=== PATIENT | female | born 1975 | race Caucasian/White ===

== ENCOUNTER 2018-09-08 20:23 | Observation (INO) ==
--- NOTE | 2018-09-08 20:53 | Emergency Department Note ---
Disposition Clinical Impression: Perirectal abscess Disposition: Admitted As Inpatient Condition: Fair Referrals: Yoly Reynoso CNP [Primary Care Provider] - Forms: ED Satisfaction Letter Time of Disposition: 21:01 Skin/Abscess/FB HPI Chief complaint: ED Skin/Abscess/Foreign Body Stated complaint: abcess on bottom/ to be admitted Time Seen by Provider: 09/08/18 20:35 Nursing Notes Reviewed: Yes Vital Signs Reviewed: Yes HPI Narrative: 43-year-old female presents from home for continued evaluation of an abscess on her left buttock. First noticed this morning has been exquisitely painful. She had no pain yesterday. She did self-express material from the area which she describes as, "pus, blood, and what looked like poop." This was operated on 10 years ago and, "cleaned out." Her surgeon at that time advised her that she needed to have a second surgery to repair the area. She never followed up. Patient was seen and evaluated this evening at [facility]. She was being prepared for transfer to this facility, admission to hospitalist with consultation to general surgery. She left that facility AGAINST MEDICAL ADVICE because her father is on hospice and she needed to ready him, his medications, and obtain a caregiver for the next several days. Once this was done, she presented to the emergency department at this facility. PMH: Seizure history ROS: Positive: As above Negative: Fever, chills, nausea, vomiting, abdominal pain, unusual back pain, change in urinary habits, vaginal discharge, pelvic pain, diarrhea, constipation Home Medications Medication Instructions Recorded Confirmed Furosemide [Lasix] 20 mg PO BID 09/08/18 09/08/18 LevETIRAcetam [Keppra] 500 mg PO TID 09/08/18 09/08/18 Previous Rx's Medication Instructions Recorded Ciprofloxacin HCl [Cipro] 500 mg PO BID #20 tablet 09/08/18 Promethazine [Phenergan] 25 mg PO Q6HR PRN #16 tablet 09/08/18 metroNIDAZOLE [Metronidazole] 500 mg PO TID #30 tablet 09/08/18 Allergies Allergy/AdvReac Type Severity Reaction Status Date / Time Penicillins Allergy Rash Verified 02/27/17 17:52 propoxyphene Allergy Rash Verified 02/27/17 17:52 [From Darvocet-N] Sulfa (Sulfonamide Allergy Swelling Verified 02/27/17 17:52 Antibiotics) of Lip/Tongue/Throat All systems ED: reviewed and negative except as stated. 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 Head: atraumatic, normocephalic Eye: normal appearance, no scleral icterus, no conjunctival injection ENT: mucous membranes moist, normal external ear exam Neck: normal inspection, trachea midline, full ROM Chest: normal inspection, symmetric chest rise Respiratory: Good respiratory effort. Bilateral breath sounds are clear without wheezing, crackles, or rhonchi. Cardiovascular: Regular rate and rhythm. No clicks, rubs, gallops, or murmors. Normal heart sounds. Abdomen: Bowel sounds present normoactive. Abdomen is soft, nondistended, and nontender. No guarding or rebound. Rectal exam: Electronic Installer present. External rectal exam showed swollen fluctuant erythematous oval measuring 10 similar by 5 cm tangent and directly lateral to the rectum on the patient's left gluteal cleft. This was exquisitely painful to light touch. There is a central umbilication currently not draining. It was not probed and internal rectal exam was not performed. No tenderness or visible lesion overlying the sacrum or coccyx. Musculoskeletal: Spontaneously moving all extremities. Skin: warm, dry, intact. Neuro: GCS 15. No focal neurologic deficits observed. Psych: Patient's affect is appropriate for situation. Course Course Narrative: At [facility]: 1g meropenem at appx 5pm 2L IVF CT abdomen and pelvis with IV contrast performed at [facility] radiology impression: CT/CT pelvis w iv no oral IMPRESSION: Perirectal medial gluteal mass 4.2 x 1.7 cm is noted with central calcification. This may represent complicated pilonidal cyst or chronic inflammatory process with calcification. No air bubbles are noted within the lesion. D/ / 09/08/2018 16:43:25 Ara Lombardo MD / kannan Interpreting Provider: Ara Lombardo MD CT head and pelvis read by radiology as possible pilonidal cyst. Clinically, this does not correlate. Strongly suspect perirectal abscess which may be chronic in nature given patient's history of previous operation 10 years ago for the same thing. 20:50 I discussed the patient with Dr. Siddiqi, on-call general surgeon. She is already familiar with the patient given the several discussion she had with Jes Choi earlier today. I discussed with her my physical exam findings and suspicion for perirectal abscess as well as low suspicion for pilonidal cyst. She is in agreement to see the patient as consult given the patient's, get a medical history with seizures. She requests patient be nothing by mouth after midnight's that she may see her first thing tomorrow morning. I discussed the patient with the admitting hospitalist, Dr. Lockwood, who agrees to accept the patient with general surgery following. Vital Signs Temperature 98.0 F 09/08/18 20:29 Pulse Rate 109 09/08/18 20:29 Respiratory Rate 18 09/08/18 20:29 Blood Pressure 144/87 09/08/18 20:29 O2 Sat by Pulse Oximetry 97 09/08/18 20:29 Temperature 98.0 F 09/08/18 21:00 Pulse Rate 95 09/08/18 21:00 Respiratory Rate 18 09/08/18 21:00 Blood Pressure 136/83 09/08/18 21:00 O2 Sat by Pulse Oximetry 97 09/08/18 21:00 Oxygen Delivery Oxygen Delivery Room Air
--- NOTE | 2018-09-08 21:07 | Emergency Department Note ---
Disposition Clinical Impression: Perirectal abscess Disposition: Admitted As Inpatient Condition: Fair General Adult HPI - General Chief complaint: ED Skin/Abscess/Foreign Body Stated complaint: abcess on bottom/ to be admitted Time Seen by Provider: 09/08/18 20:35 Nursing Notes Reviewed: Yes Vital Signs Reviewed: Yes - History of Present Illness Pain Scale: 9 - Related Data Home Medications Medication Instructions Recorded Confirmed Furosemide [Lasix] 20 mg PO BID 09/08/18 09/08/18 LevETIRAcetam [Keppra] 500 mg PO TID 09/08/18 09/08/18 Previous Rx's Medication Instructions Recorded Ciprofloxacin HCl [Cipro] 500 mg PO BID #20 tablet 09/08/18 Promethazine [Phenergan] 25 mg PO Q6HR PRN #16 tablet 09/08/18 metroNIDAZOLE [Metronidazole] 500 mg PO TID #30 tablet 09/08/18 Allergies Allergy/AdvReac Type Severity Reaction Status Date / Time Penicillins Allergy Rash Verified 02/27/17 17:52 propoxyphene Allergy Rash Verified 02/27/17 17:52 [From Darvocet-N] Sulfa (Sulfonamide Allergy Swelling Verified 02/27/17 17:52 Antibiotics) of Lip/Tongue/Throat Past Medical History - Past Medical History Medical history: Reports: asthma, atrial fibrillation, COPD, seizures, other Surgical history: Reports: cholecystectomy, hysterectomy, sinus surgery, other (Eye surgery, depressed skull fracture) Psychiatric history: Reports: no psych 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) - Social History Smoking Status: Current every day smoker Smokeless Tobacco Status: No Alcohol use: Reports: none Drug use: Reports: none Course Vital Signs Temperature 98.0 F 09/08/18 20:29 Pulse Rate 109 09/08/18 20:29 Respiratory Rate 18 09/08/18 20:29 Blood Pressure 144/87 09/08/18 20:29 O2 Sat by Pulse Oximetry 97 09/08/18 20:29 Temperature 98.0 F 09/08/18 21:00 Pulse Rate 95 09/08/18 21:00 Respiratory Rate 18 09/08/18 21:00 Blood Pressure 136/83 09/08/18 21:00 O2 Sat by Pulse Oximetry 97 09/08/18 21:00 Oxygen Delivery Oxygen Delivery Room Air Medical Decision Making - Medical Records Medical records reviewed: Yes I reviewed the patient's medical records. - Lab Data Lab results reviewed: Yes I reviewed the patient's lab results. Labs from earlier visit at [facility] emergency room were reviewed. - Radiology Data Radiology results reviewed: Yes I reviewed the patient's radiology results. CT report from earlier visit at [facility] emergency department was reviewed. Attestation Statement - Attestation Attestation: I, Renato Padilla MD, personally evaluated this patient and discussed their management with the resident physician. I reviewed the resident's note and agree with the documented findings, medical decision making, and plan of care. 43-year-old female presents to the emergency department with a complaint of an abscess to the left buttock which was present when she awoke this morning and got worse throughout the day. She states it was fine yesterday. She has a history of a similar episode in the same area which was surgically drained about 10 years ago. She denies any fever. No abdominal pain. No nausea or vomiting or diarrhea. She was seen at [facility] emergency department this afternoon and had a complete workup with labs including a CT of the pelvis with IV contrast. They consulted the surgeon professional engineer who recommended imipenem antibiotics which patient received. She was also to be transferred here to be admitted to the hospitalist service however the patient had some personal matters to take care of regarding care of her father and she left [facility] but after she made arrangements for someone to care for her ill father she presented here to be admitted. On examination patient is a well-developed well-nourished female in no acute distress but appears to be in mild discomfort. She is alert and oriented 3. There is no cyanosis or diaphoresis. Breath sounds are clear and equal bilaterally. Heart regular rate and rhythm. Abdomen soft and nontender with normal bowel sounds. Patient does have a large tender inflamed area to the medial aspect of the left buttock. No active drainage noted. Patient's labs and CT report from [facility] emergency Department reviewed. The surgeon professional engineer, Dr. Siddiqi, was consulted and recommended admission to the hospitalist service and she will consult on the patient in the morning. The hospitalist, Dr. Lockwood, was consulted and accepted admission of the patient.
[2018-09-08] MEDS ORDERED: Ketorolac 30 MG/ML VIAL IVP PRN (21:58)
[2018-09-08] MEDS ORDERED: Naloxone 0.4 MG/ML INJ IVP PRN (21:58)
[2018-09-08] MEDS ORDERED: OXYCODONE Oral CONC 10 MG/0.5 ML ORAL.SYG SL PRN (21:58)
[2018-09-08] MEDS ORDERED: Acetaminophen 325 MG TABLET PO PRN (21:58)
[2018-09-08] MEDS ORDERED: Ringers Solution, Lactated 1,000 ML IVC SCH (22:00)
[2018-09-08] MEDS ORDERED: Levofloxacin 500 MG/100 ML 500 MG/100 ML BAG IVPB SCH (23:45)
--- NOTE | 2018-09-08 23:59 | Internal Med History&Physical ---
Date of Encounter: 09/09/18 Time of Encounter: 23:59 Internal Medicine - H&P: HPI Chief complaint: buttock pain Admitted From: Home Plans for Post Hospital Care: Home History of present illness: Sana Moya is a 43-year-old woman with a history of seizure disorder and prior gluteal abscess who was initially evaluated and [facility] ER this evening where she went to with complaints of pain and swelling in her left gluteal cleft seen to have an abscess formation on CT. She has being prepared for transfer here however she left AMA because her father is on hospice and she needed to get things ready for him. She then comes back here at which time surgery was contacted and recommended continuing empiric antibiotics and will be seen on consult in the morning. She denies fever and chills and her only complaint is pain and drainage. CT scan was reviewed and the findings of a perirectal medial gluteal mass noted. She reports an anaphylactic allergy to penicillins. Past Med Surg Social Fam HX - Past Medical History Medical history: asthma, atrial fibrillation, COPD, seizures Additional medical history: sleep apnea Psychiatric history: no psych history - Past Surgical History Surgical History: cholecystectomy, hysterectomy, sinus surgery, other Additional surgical history: eye surgery, buttock abscesses, breast cyst removal, wrist surgery (left), depressed skull fracture - Social History Smoking Status: Current every day smoker Smokeless Tobacco Status: Yes Alcohol use: none Drug use: none - Family History Father Hx Family Respiratory Disorders: Yes (Lung cancer) Mother Hx Family Respiratory Disorders: Yes (Lung cancer) Internal Medicine - H&P: Meds Ciprofloxacin HCl [Cipro] 500 mg PO BID #20 tablet 09/08/18 [Rx] Furosemide [Lasix] 20 mg PO BID 09/08/18 [History] LevETIRAcetam [Keppra] 500 mg PO TID 09/08/18 [History] Promethazine [Phenergan] 25 mg PO Q6HR PRN #16 tablet 09/08/18 [Rx] Verapamil HCl [Verapamil ER] 120 mg PO 09/08/18 [History] Zolpidem [Ambien] 10 mg PO HS 09/08/18 [History] metroNIDAZOLE [Metronidazole] 500 mg PO TID #30 tablet 09/08/18 [Rx] Allergy/AdvReac Type Severity Reaction Status Date / Time Penicillins Allergy Intermediate Rash Verified 09/08/18 23:43 propoxyphene Allergy Rash Verified 02/27/17 17:52 [From Darvocet-N] Sulfa (Sulfonamide Allergy Swelling Verified 02/27/17 17:52 Antibiotics) of Lip/Tongue/Throat All Systems PM: A 10-system review of systems was performed and is negative for pertinent findings except as documented above in the HPI. - Constitutional Vitals: Temp Pulse Resp BP Pulse Ox 98.6 F 83 15 125/77 99 09/08/18 21:56 09/08/18 21:56 09/08/18 23:38 09/08/18 21:56 09/08/18 23:38 Exam: Vitals: Reviewed General: Well-developed and well-appearing in no acute distress. Skin: Mild erythema and moderate induration in the mid left gluteal cleft with a non-draining orifice noted, tender to palpation. HEENT: Moist mucous membranes. No conjunctivae pallor. Neck: No lymphadenopathy. No JVD. No carotid bruits. No palpable thyroid. Chest: Normal thoracic expansion. Normal breath sounds. Clear to auscultation. Heart: Normal S1 & S2; rhythmic. No rubs or murmurs. Abdomen: Non-distended, soft and non-tender to palpation. No peritoneal reaction. Liver is normal in size. Spleen is not palpable. Extremities: No clubbing, cyanosis or edema. No calf tenderness. Normal distal pulses. Neurological: Awake, alert and oriented to person, place and time. No focal deficits. Psych: Affect appropriate. - Assessment and plan (1) Perirectal abscess Current Visit: Yes Status: Acute Assessment and plan: Will start empiric antibiotics pending surgical evaluation for incision and drainage. Purulence should be sent for culture. Given PCN allergy will administer quinolone/metronidazole for gram negative enterics and anaerobic coverage given the location; vancomycin for MRSA. (2) Seizure disorder Current Visit: Yes Status: Acute Assessment and plan: The patient reports being off her Keppra over the last few days because she ran out. Will check a level and resume. Seizure precautions ordered. (3) Afib Current Visit: Yes Status: Chronic Assessment and plan: Will monitor on telemetry and continue confirmed rate control medication. The patient denies being on antiplatelet/anticoagulant therapy however. Qualifiers: Atrial fibrillation type: paroxysmal Qualified Code(s): I48.0 - Paroxysmal atrial fibrillation (4) DVT prophylaxis Current Visit: Yes Status: Acute Assessment and plan: Anti-embolic stockings ordered. - Time Spent With Patient Total time spent is greater than 50% in coordination of care (as documented) at patient's floor/unit and/or counseling patient: Greater than 35 minutes
[2018-09-09] MEDS ORDERED: Piperacillin/Tazobactam 3.375 GM in 0.9 % Sodium Chloride Mini Bag 100 ML IVPB SCH
[2018-09-09 05:07] LABS: Basophils % 0.3 %; Eosinophils # 0.1 K/mcL (0.0-0.6); Eosinophils % 1.1 %; Hematocrit 42.4 % (35.3-44.9); Hemoglobin 13.7 g/dL (11.5-15.4); Immature Granulocytes % 0.3 % (0-4); Lymphocytes # 2.8 K/mcL (0.6-4.6); Lymphocytes % 27.5 %; Mean Corpuscular HGB Conc 32.3 g/dL (31.6-35.5); Mean Corpuscular Hemoglobin 29.1 pg (28.0-33.3); Mean Corpuscular Volume 90.2 fL (83.0-100.0); Mean Platelet Volume 9.8 fL (9.4-12.4); Monocytes # 0.7 K/mcL (0.0-1.3); Neutrophils # 6.5 K/mcL (1.6-8.9); Platelet Count 250 K/mcL (140-400); Red Cell Distribution Width 14.5 % (11.5-14.5); Segmented Neutrophils % 63.8 %
[2018-09-09 05:14] LABS: INR 1.2; Prothrombin Time 13.2 Seconds (9.4-12.1)
[2018-09-09 05:17] LABS: Activated Partial Thrombo Time 35.2 Seconds (26.0-36.0)
[2018-09-09] MEDS ORDERED: *HR* Heparin 5,000 UNIT/ML VIAL SQ SCH (06:00)
[2018-09-09] MEDS ORDERED: *HR* OxyCODONE Immed Rel 5 MG TABLET PO PRN (07:32)
[2018-09-09] MEDS ORDERED: *HR* HYDROmorphone (PF) 1 MG/ML SYRINGE IVP PRN (07:32)
[2018-09-09] MEDS ORDERED: *HR* Promethazine 25 MG/ML VIAL IVP PRN (07:32)
[2018-09-09] MEDS ORDERED: *HR* Propofol 200 MG/20 ML VIAL IVP ONE (07:35)
[2018-09-09] MEDS ORDERED: *HR* Midazolam HCl 2 MG/2 ML VIAL ONE ×2 (07:35→08:01)
[2018-09-09] MEDS ORDERED: Ondansetron 4 MG/2 ML VIAL ONE (07:35)
[2018-09-09] MEDS ORDERED: Lidocaine -MPF 2% 2 ML VIAL ONE (07:35)
[2018-09-09] MEDS ORDERED: Dexamethasone 4 MG/ML VIAL ONE (07:35)
[2018-09-09] MEDS ORDERED: *HR* FentaNYL (PF) 100 MCG/2 ML VIAL ONE ×3 (07:35→09:21)
[2018-09-09] MEDS ORDERED: *HR* Succinylcholine 200 MG/10 ML VIAL IVP ONE (07:40)
[2018-09-09 07:59] LABS: Estimated Average Glucose 123 mg/dl; Hemoglobin A1C 5.9 %
--- NOTE | 2018-09-09 08:03 | Anesthesia Evaluation PreOp ---
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 Other Medical History: Other (Obese) Anesthesia History: No Prior Anesthetic Complications : No (Hysterectomy) Alcohol Use: none Drug use: none Medications and Allergies Ciprofloxacin HCl [Cipro] 500 mg PO BID #20 tablet 09/08/18 [Rx] Furosemide [Lasix] 20 mg PO BID 09/08/18 [History] LevETIRAcetam [Keppra] 500 mg PO TID 09/08/18 [History] Promethazine [Phenergan] 25 mg PO Q6HR PRN #16 tablet 09/08/18 [Rx] Verapamil HCl [Verapamil ER] 120 mg PO 09/08/18 [History] Zolpidem [Ambien] 10 mg PO HS 09/08/18 [History] metroNIDAZOLE [Metronidazole] 500 mg PO TID #30 tablet 09/08/18 [Rx] Allergy/AdvReac Type Severity Reaction Status Date / Time Penicillins Allergy Intermediate Rash Verified 09/08/18 23:43 propoxyphene Allergy Rash Verified 02/27/17 17:52 [From Darvocet-N] Sulfa (Sulfonamide Allergy Swelling Verified 02/27/17 17:52 Antibiotics) of Lip/Tongue/Throat - Meds/Allergy Pre-op Review Medications Reviewed: Yes Allergies Reviewed: Yes Anesthesia Results - Labs 09/09/18 04:24 Laboratory Tests 09/08/18 09/09/18 14:55 04:24 Hgb 13.7 Hct 42.4 Plt Count 250 Sodium 137 Potassium 4.1 BUN 9 Creatinine 0.67 - Imaging EKG: report reviewed (SR) Anesthesia Exam Vital Signs/O2 Sat/Glucose, Most Current Temp Pulse Resp BP Pulse Ox 09/09/18 07:47 98.1 F 70 16 115/74 98 Height: 5'2 Weight: 185 lbs NPO (# of Hours): MN Pain Scale: 0 - HEENT Pupil (Motor): Pupils equal, EOMI Mallampati: II Teeth: Normal Oral Opening: Greater than 3 - CATALOG SPECIALIST LOC: Oriented CATALOG SPECIALIST Motor: Normal RUE, Normal LUE, Normal RLE, Normal LLE, Normal Face CATALOG SPECIALIST Sensory: Normal: RUE, LUE, RLE, LLE, Face - Cardiac Rhythm: Regular Murmur: None JVD: No Carotid Bruit: No - Pulmonary Breath Sounds: bilateral Clear Respiratory Effort: Symmetrical Anesthesia Assess/Plan ASA Score: 3 (COPD Seizures Asthma Tobacco AFib Obese) Level of consciousness: Cooperative, Oriented Anesthetic Plan: General Autologous Blood: No Monitoring Plan: Standard Monitors Recovery Plan: PACU (Discussed GA, agrees to proceed)
[2018-09-09] MEDS ORDERED: Famotidine 20 MG/2 ML VIAL ONE (08:07)
[2018-09-09] MEDS ORDERED: Acetaminophen IV 1,000 MG/100 ML INFUS..BTL ONE (08:07)
[2018-09-09 08:11] LABS: BUN/Creatinine Ratio 10 (6-26); Blood Urea Nitrogen 6 mg/dL (6-20); Calcium 8.9 mg/dL (8.6-10.3); Carbon Dioxide 27 mEq/L (23-29); Chloride 110 mEq/L (98-107); Glucose 98 mg/dL (70-105); Osmolality,Calculated 288 (280-300); Sodium 140 mEq/L (136-145); eGFR For Non-African Americans > 60 (> 60)
[2018-09-09] MEDS ORDERED: Albuterol 2.5 MG/3 ML NEBULIZER IH ONE (08:30)
[2018-09-09] MEDS ORDERED: Albuterol 2.5 MG/3 ML NEBULIZER ONE (08:31)
[2018-09-09] MEDS ORDERED: Lidocaine Jelly 6ml 1 APPL/6 ML JEL.PF.APP ONE (08:40)
--- NOTE | 2018-09-09 08:55 | General Surgery Consult Note ---
Date of Encounter: 09/09/18 Time of Encounter: 08:54 Assessment and Plan (1) Perirectal abscess Current Visit: Yes Status: Acute Discussed with patient that I have personally reviewed her CT scan, she has likely chronic scar in the area of pain as seen by calcifications but given her onset of new sudden pain we need to do a rectal exam under anesthesia, possible I/D perirectal abscess, risks and benefits discussed and she wishes to proceed npo ivf hydration prn pain control medical management per hospitalist antibiotics History of Present Illness Consult date: 09/09/18 Reason for consult: other (perianal abscess) Requesting physician: Gennaro Beck History of present illness: Patient is a 43 yo female with multiple comorbidities who states about 10 years ago she was treated for a perirectal abscess and had and Incision and drainage done. The surgeon told her she may need more surgery in the future and there was a risk of incontinence and therefore she never followed up. She had not had any recurrent issues over the last 10 years until yesterday morning she had onset of left sided perianal/perirectal pain. She squeezed the area and states she got pus, blood and stool to drain from the area. She denies fevers. Is having normal bowel function. Area is very tender. She presented to [facility] ED where a CT was done showing a perirectal collection but her father is in hospice and she had to go home to make arrangements for him. She then presented a few hours later to [facility] for treatment. She was admitted overnight for iv antibiotics for surgery consult this am. Past Med Surg Social Fam HX - Past Medical History Source: patient Medical history: asthma, atrial fibrillation, COPD, seizures, other (hx left perirectal abscess s/p I/D 10 yrs ago) Additional medical history: sleep apnea Psychiatric history: no psych history - Past Surgical History Surgical History: cholecystectomy, hysterectomy, sinus surgery, other Additional surgical history: eye surgery, left perirectal abscesses, breast cyst removal, wrist surgery (left), depressed skull fracture - Social History Smoking Status: Current every day smoker Smokeless Tobacco Status: Yes Alcohol use: none Drug use: none - Family History Father Hx Family Respiratory Disorders: Yes (Lung cancer) Mother Hx Family Respiratory Disorders: Yes (Lung cancer) Medications and Allergies Ciprofloxacin HCl [Cipro] 500 mg PO BID #20 tablet 09/08/18 [Rx] Furosemide [Lasix] 20 mg PO BID 09/08/18 [History] LevETIRAcetam [Keppra] 500 mg PO TID 09/08/18 [History] Promethazine [Phenergan] 25 mg PO Q6HR PRN #16 tablet 09/08/18 [Rx] Verapamil HCl [Verapamil ER] 120 mg PO 09/08/18 [History] Zolpidem [Ambien] 10 mg PO HS 09/08/18 [History] metroNIDAZOLE [Metronidazole] 500 mg PO TID #30 tablet 09/08/18 [Rx] Allergy/AdvReac Type Severity Reaction Status Date / Time Penicillins Allergy Intermediate Rash Verified 09/08/18 23:43 propoxyphene Allergy Rash Verified 02/27/17 17:52 [From Darvocet-N] Sulfa (Sulfonamide Allergy Swelling Verified 02/27/17 17:52 Antibiotics) of Lip/Tongue/Throat Review of Systems All systems PM: reviewed and no additional remarkable complaints except as stated All systems PM: The remainder of the systems were reviewed and are negative General Surgery Exam Initial Vital Signs Temp Pulse Resp BP Pulse Ox 98.0 F 109 18 144/87 97 09/08/18 20:29 09/08/18 20:29 09/08/18 20:29 09/08/18 20:29 09/08/18 20:29 - General physical appearance well developed, well nourished, no distress - Eyes PERRL, normal ocular movement - ENT normal mucosa, normocephalic - Neck trachea midline - Respiratory normal expansion, clear to auscultation - Cardiovascular Cardiovascular exam: Present: RRR - Rectum Rectum: Present: other (no obvious perirectal induration or erythema , patient is very tender on the left side) - Integumentary Integumentary general surgery: Present: no abnormal pigmentation - Neurologic Present: CN 2-12 grossly intact - Musculoskeletal Present: normal gait, normal posture - Psychiatric Psychiatric general surgery: Present: A&Ox3, speech is normal Exam Initial Vital Signs Temp Pulse Resp BP Pulse Ox 98.0 F 109 18 144/87 97 09/08/18 20:29 09/08/18 20:29 09/08/18 20:29 09/08/18 20:29 09/08/18 20:29 Results - Labs 09/09/18 04:24 12/16/18 07:26 Abnormal lab results PT 13.2 Seconds (9.4-12.1) H 09/09/18 04:24 Chloride 110 mEq/L (98-107) H 09/09/18 07:26 Hemoglobin A1c 5.9 % (-5.6) H 09/09/18 04:24 Levetiracetam < 3 mcg/mL (6-46) L 09/09/18 04:24 Diabetes panel 09/09/18 09/09/18 Range/Units 04:24 07:26 Sodium 140 (136-145) mEq/L Potassium 4.0 (3.5-5.1) mEq/L Chloride 110 H (98-107) mEq/L Carbon Dioxide 27 (23-29) mEq/L BUN 6 (6-20) mg/dL Creatinine 0.60 (0.60-1.20) mg/dL Glucose 98 (70-105) mg/dL Hemoglobin A1c 5.9 H ( - 5.6) % Calcium 8.9 (8.6-10.3) mg/dL Calcium panel 09/09/18 Range/Units 07:26 Calcium 8.9 (8.6-10.3) mg/dL Pituitary panel 09/09/18 Range/Units 07:26 Sodium 140 (136-145) mEq/L Potassium 4.0 (3.5-5.1) mEq/L Chloride 110 H (98-107) mEq/L Carbon Dioxide 27 (23-29) mEq/L BUN 6 (6-20) mg/dL Creatinine 0.60 (0.60-1.20) mg/dL Glucose 98 (70-105) mg/dL Calcium 8.9 (8.6-10.3) mg/dL Adrenal panel 09/09/18 Range/Units 07:26 Sodium 140 (136-145) mEq/L Potassium 4.0 (3.5-5.1) mEq/L Chloride 110 H (98-107) mEq/L Carbon Dioxide 27 (23-29) mEq/L BUN 6 (6-20) mg/dL Creatinine 0.60 (0.60-1.20) mg/dL Glucose 98 (70-105) mg/dL Calcium 8.9 (8.6-10.3) mg/dL All other labs normal. - Imaging CT scan - pelvis: report reviewed, image reviewed Consult Discharge Plan - Plan Referrals: Yoly Reynoso, MANAGER SOUND [Primary Care Provider] -
[2018-09-09] MEDS ORDERED: levETIRAcetam 250 MG TABLET PO SCH (09:00)
[2018-09-09] MEDS ORDERED: Levofloxacin 500 MG/100 ML 500 MG/100 ML BAG IVPB SCH (09:00)
[2018-09-09] MEDS ORDERED: Ketorolac 30 MG/ML VIAL ONE (09:31)
--- NOTE | 2018-09-09 09:46 | Operative Note ---
Date of procedure: 09/09/18 Pre-op diagnosis: perirectal abscess Post-op diagnosis: same Procedure: Rectal exam under anesthesia, I/D perirectal abscess Complications: none immediate Anesthesia: ALEXANDRA Surgeon: Dayna Siddiqi Was there an optometry assistant present: No Estimated blood loss (cc): 3 Specimen: none Condition: stable Disposition: PACU Procedure in Detail: Patient was brought into operating suite on transport cart. Sign in was performed and everyone was in agreement. Anesthesia was induced and patient was endotracheally intubated by anesthesia without incident. Patient was placed prone on operating table with a pressure points padded by foam and pillows. The bed was flexed and her bilateral buttocks were secured with 2 inch silk tape. THe perianal area and bilateral buttocks were prepped and draped in the usual sterile fashion with betadine. Time out was performed and everyone was in agreement. Externally there was no erythema, no fluctuance or induration, only normal soft tissue. Digital rectal exam revealed no obvious masses only stool. Using fansler anoscope the anal canal and distal rectum were evaluated and there was a focal area of purulent drainage seen draining from a small opening at the internal/external sphincter juction at the prone 7-8 oclock position. A lacrimal duct probe was placed through this opening into a small perirectal abscess cavity. Using the bovie the internal sphincter was opened about 0.5 cm in length A hemostat was placed into the abscess cavity to break up any loculations. The cavity was irrigated with sterile saline and packed with 1/4" iodoform packing. There was no bleeding at the end of the case. 4x4 gauze and tape were applied as a dressing. She was placed supine on the transport cart where she was awoken from anesthesia and extubated without incident. She tolerated the procedure well. All lap and instrument counts were correct at the end of the case. She was taken to pacu in stable condition.
--- NOTE | 2018-09-09 10:19 | Anesthesia Evaluation Post Op ---
Date of Encounter: 09/09/18 Time of Encounter: 10:20 - Vital Signs Vital Signs: Vital Signs/O2 Sat/Glucose, Most Current Temp Pulse Resp BP Pulse Ox 09/09/18 10:04 82 16 132/88 96 09/09/18 09:54 85 16 128/86 96 09/09/18 09:44 97.1 F L 99 14 127/75 97 09/09/18 07:47 98.1 F 70 16 115/74 98 - Lungs Lungs: Clear Ascult./Percussion - Airway Airway: Non-obstructed - Cardiovascular Regular Rate - Mental Status Mental Status: Alert & Oriented, Answers Appropriately - Pain Pain Scale: 0 - Nausea Vomiting Nausea Vomiting: Not Present - Hydration Hydration: Ice chips - Discharge PostOp Status: Transfer Patient to floor
[2018-09-09] MEDS ORDERED: *HR* OxyCODONE/APAP 5/325 TABLET PO PRN (10:49)
[2018-09-09] MEDS ORDERED: Naloxone 0.4 MG/ML INJ IVP PRN (10:49)
[2018-09-09] MEDS ORDERED: Ringers Solution, Lactated 1,000 ML IVC SCH (10:49)
[2018-09-09] MEDS ORDERED: Ketorolac 30 MG/ML VIAL IVP PRN (10:49)
[2018-09-09] MEDS: Nicotine 21 MG PATCH.TD24 TD SCH (11:36)
--- NOTE | 2018-09-09 11:46 | Internal Med Progress Note ---
Hospitalist Progress Note - Encounter Date of Encounter: 09/09/18 Time of Encounter: 11:43 - Subjective Interval History: s/p perirectal abscess I+D. No acute distress. - Exam Vitals: Temp Pulse Resp BP Pulse Ox 98.7 F 73 16 117/83 94 09/09/18 10:14 09/09/18 10:14 09/09/18 10:14 09/09/18 10:14 09/09/18 10:14 Exam: Vitals: Reviewed General: Well-developed and well-appearing in no acute distress. Skin: Mild erythema and moderate induration in the mid left gluteal cleft with a non-draining orifice noted, tender to palpation. HEENT: Moist mucous membranes. No conjunctivae pallor. Neck: No lymphadenopathy. No JVD. No carotid bruits. No palpable thyroid. Chest: Normal thoracic expansion. Normal breath sounds. Clear to auscultation. Heart: Normal S1 & S2; rhythmic. No rubs or murmurs. Abdomen: Non-distended, soft and non-tender to palpation. No peritoneal reaction. Liver is normal in size. Spleen is not palpable. Extremities: No clubbing, cyanosis or edema. No calf tenderness. Normal distal pulses. Neurological: Awake, alert and oriented to person, place and time. No focal deficits. Psych: Affect appropriate. - Assessment and Plan (1) Perirectal abscess Current Visit: Yes Status: Acute Assessment and Plan: S/P preirectal abscess I+D, wound packed. continue current abx. plan to dc in am. (2) Seizure disorder Current Visit: No Status: Chronic Assessment and Plan: The patient reports being off her Keppra over the last few days because she ran out. Keppra leve is low. continue home dose. Seizure precautions ordered. (3) Afib Current Visit: No Status: Chronic Assessment and Plan: Will monitor on telemetry and continue confirmed rate control medication. The patient denies being on antiplatelet/anticoagulant therapy however. (4) DVT prophylaxis Current Visit: Yes Status: Acute Assessment and Plan: Anti-embolic stockings ordered. - Time Spent with Patient Total time spent is greater than 50% in coordination of care (as documented) at patient's floor/unit and/or counseling patient: Greater than 35 minutes Plan of Care Discussed with: patient Internal Medicine: Result - Labs CBC & Chem 7: 09/09/18 04:24 09/09/18 07:26 Labs: Short CBC 09/09/18 Range/Units 04:24 WBC 10.2 (4.3-11.1) K/mcL Hgb 13.7 (11.5-15.4) g/dL Hct 42.4 (35.3-44.9) % Plt Count 250 (140-400) K/mcL Neutrophils # 6.5 (1.6-8.9) K/mcL BMP 09/09/18 07:26 Sodium 140 Potassium 4.0 Chloride 110 H Carbon Dioxide 27 BUN 6 Creatinine 0.60 Glucose 98 Calcium 8.9 - ABG Interpretation ABG results: PT/INR, D-dimer PT 13.2 Seconds (9.4-12.1) H 09/09/18 04:24 Consult Discharge Plan - Plan Referrals: Yoly Reynoso, [facility] [Primary Care Provider] - (3) Afib Qualifiers: Atrial fibrillation type: paroxysmal Qualified Code(s): I48.0 - Paroxysmal atrial fibrillation
[2018-09-09] MEDS ORDERED: MetroNIDAZOLE 500 MG/100 ML 500 MG/100 ML BAG IVPB SCH ×2 (16:00)
[2018-09-09] MEDS: levETIRAcetam 250 MG TABLET PO SCH ×2 (16:45→21:11)
[2018-09-09] MEDS: MetroNIDAZOLE 500 MG/100 ML 500 MG/100 ML BAG IVPB SCH ×2 (16:45→23:22)
--- NOTE | 2018-09-09 17:37 | Discharge Summary ---
<Dayna Siddiqi - Last Filed: 09/09/18 17:35> Orders not resulted at time of discharge: Pending orders 09/08/18 22:25 Culture,Blood [BC] Routine 09/10/18 04:00 BMP [Basic Metabolic Panel] AM 0400 Complete Blood Count [HEME] AM 0400 Date of Encounter: 09/10/18 Time of Encounter: 09:00 - Discharge Diagnosis (1) Perirectal abscess Priority: Primary Status: Acute General Surgery Exam Initial Vital Signs Temp Pulse Resp BP Pulse Ox 98.0 F 109 18 144/87 97 09/08/18 20:29 09/08/18 20:29 09/08/18 20:29 09/08/18 20:29 09/08/18 20:29 - General physical appearance well developed, no distress - Eyes PERRL, normal ocular movement - ENT normal mucosa, normocephalic - Respiratory normal expansion, normal respiratory effort - Cardiovascular Cardiovascular exam: Present: RRR - Abdomen Abdomen general surgery: Present: bowel sounds present, soft, non tender - Rectum Rectum: Present: other (no perianal/perirectal induration, erythema) - Integumentary Integumentary general surgery: Present: warm and dry - Neurologic Present: CN 2-12 grossly intact - Musculoskeletal Present: normal posture - Psychiatric Psychiatric general surgery: Present: A&Ox3, speech is normal - Hospital Course Hospital course: Ms. Moya is a 43 year old female admitted with perirectal abscess. She was taken to OR for rectal exam under anesthesia and I/D perirectal abscess, was drained intra-anally. She was treated with IV antibiotics. She was tolerating regular diet. Pain was controlled with po medication. She was discharged home in stable condition. - Time Spent with Patient Total time spent providing and/or coordinating discharge services: - Discharge Medications Prescriptions: OxyCODONE/APAP 5/325 [Percocet 5/325 MG] 1 each PO Q6HR PRN 5 Days #20 tablet PRN Reason: Pain Docusate Sodium [Colace] 100 mg PO BID PRN #30 capsule PRN Reason: Contstipation Psyllium Husk [Metamucil] 1.04 gm PO BID 30 Days #60 capsule Home Medications: Ciprofloxacin HCl [Cipro] 500 mg PO BID #20 tablet 09/08/18 [Rx] Furosemide [Lasix] 20 mg PO BID 09/08/18 [History] LevETIRAcetam [Keppra] 500 mg PO TID 09/08/18 [History] Promethazine [Phenergan] 25 mg PO Q6HR PRN #16 tablet 09/08/18 [Rx] Verapamil HCl [Verapamil ER] 120 mg PO 09/08/18 [History] Zolpidem [Ambien] 10 mg PO HS 09/08/18 [History] metroNIDAZOLE [Metronidazole] 500 mg PO TID #30 tablet 09/08/18 [Rx] Docusate Sodium [Colace] 100 mg PO BID PRN #30 capsule 09/10/18 [Rx] OxyCODONE/APAP 5/325 [Percocet 5/325 MG] 1 each PO Q6HR PRN 5 Days #20 tablet 09/10/18 [Rx] Psyllium Husk [Metamucil] 1.04 gm PO BID 30 Days #60 capsule 09/10/18 [Rx] Allergies/Adverse Reactions: Allergy/AdvReac Type Severity Reaction Status Date / Time Penicillins Allergy Intermediate Rash Verified 09/08/18 23:43 propoxyphene Allergy Rash Verified 02/27/17 17:52 [From Darvocet-N] Sulfa (Sulfonamide Allergy Swelling Verified 02/27/17 17:52 Antibiotics) of Lip/Tongue/Throat Date of admission: 09/08/18 21:32 Primary care physician: Yoly Reynoso CNP Consults: 09/08/18 20:52 Consult to Surgery [CONS] Stat Consulting Provider: [facility] Reason for Consult: Left perirectal abscess Time Notified: 20:52 Call Completed: Yes Discharging clinician: Dayna Siddiqi Anticipated date of discharge: 09/10/18 Labs on day of discharge: Labs from last 24 hours 09/09/18 09/09/18 09/09/18 07:26 05:30 04:24 WBC RBC Hgb Hct MCV MCH MCHC RDW Plt Count MPV Immature Gran % Seg Neutrophils % Lymphocytes % Monocytes % Eosinophils % Basophils % Neutrophils # Lymphocytes # Monocytes # Eosinophils # Basophils # PT INR APTT Sodium 140 Potassium 4.0 Chloride 110 H Carbon Dioxide 27 BUN 6 Creatinine 0.60 Est GFR ( Amer) > 60 Est GFR (Non-Af Amer) > 60 BUN/Creatinine Ratio 10 Glucose 98 Est Mean Plasma Glucose 123 Hemoglobin A1c 5.9 H Calculated Osmolality 288 Calcium 8.9 Levetiracetam Specimen Rejected Hemolyzed 09/09/18 09/09/18 09/09/18 04:24 04:24 04:24 WBC 10.2 RBC 4.70 Hgb 13.7 Hct 42.4 MCV 90.2 MCH 29.1 MCHC 32.3 RDW 14.5 Plt Count 250 MPV 9.8 Immature Gran % 0.3 Seg Neutrophils % 63.8 Lymphocytes % 27.5 Monocytes % 7.0 Eosinophils % 1.1 Basophils % 0.3 Neutrophils # 6.5 Lymphocytes # 2.8 Monocytes # 0.7 Eosinophils # 0.1 Basophils # 0.0 PT 13.2 H INR 1.2 APTT 35.2 Sodium Potassium Chloride Carbon Dioxide BUN Creatinine Est GFR ( Amer) Est GFR (Non-Af Amer) BUN/Creatinine Ratio Glucose Est Mean Plasma Glucose Hemoglobin A1c Calculated Osmolality Calcium Levetiracetam < 3 L Specimen Rejected Preliminary micro results at discharge 09/08/18 22:25 Blood Culture - Preliminary Peripheral Venipuncture Culture is incubating and being continuously monitored for growth. Final report to follow. 09/08/18 22:20 Blood Culture - Preliminary Peripheral Venipuncture Culture is incubating and being continuously monitored for growth. Final report to follow. - Patient Status Disposition: Home, Self-Care Condition: Fair - Discharge Instructions Instructions: Anorectal Abscess and Anal Fistula (DC), Sitz Bath (DC) Follow Up With: Yoly Reynoso CNP [Primary Care Provider] - Jessica Floyd CNP [Advanced Practice Nurse] - (two weeks for I/D perirectal abscess) Additional Instructions: sitz baths 4 times a day after bm's = soak buttocks in warm soapy water in bathtub or manager training shower and let warm water run over backside for 10-15 minutes each time take stool softener such as colace 100 mg po twice daily fiber supplement - metamucil capsules 2 by mouth daily drink at least 8, 8 oz water daily call office if persistent fevers of 101, pelvic pain, inability to urinate or have bowel movement, persistent rectal bleeding get your prescriptions for cipro and flagyl filled and take as prescribed - Diet and Activity Activity: as per physical therapy <Jessica Floyd - Last Filed: 09/10/18 08:07> Orders not resulted at time of discharge: Pending orders 09/08/18 22:25 Culture,Blood [BC] Routine Date of Encounter: 09/10/18 Time of Encounter: 08:02 - Discharge Diagnosis (1) Perirectal abscess Priority: Primary Status: Resolved General Surgery Exam Initial Vital Signs Temp Pulse Resp BP Pulse Ox 98.0 F 109 18 144/87 97 09/08/18 20:29 09/08/18 20:29 09/08/18 20:29 09/08/18 20:29 09/08/18 20:29 Vital Signs Temp Pulse Resp BP Pulse Ox 09/10/18 06:37 98.5 F 107 14 94/65 99 09/10/18 04:42 98.7 F 84 15 120/60 96 09/10/18 00:05 97.7 F 99 18 138/73 98 09/09/18 19:11 98.5 F 109 14 164/88 97 09/09/18 17:00 97 09/09/18 16:23 98.9 F 82 16 129/80 97 09/09/18 13:45 98.8 F 78 16 136/78 96 09/09/18 12:45 98.7 F 75 16 118/68 95 09/09/18 11:45 98.4 F 67 16 140/86 97 09/09/18 11:15 97.8 F 69 18 124/82 96 09/09/18 10:14 98.7 F 73 16 117/83 94 09/09/18 10:04 82 16 132/88 96 09/09/18 09:54 85 16 128/86 96 09/09/18 09:44 97.1 F L 99 14 127/75 97 Intake and Output 09/09/18 09/10/18 09/10/18 23:59 07:59 15:59 Intake Total 400 / 400 100 / 100 Output Total 0 / 0 0 / 0 Balance 400 / 400 100 / 100 Intake: IV Fluids 100 / 100 100 / 100 Flagyl Premix 500 MG/100 ML 500 100 / 100 100 / 100 mg In 100 ml @ 100 mls/hr IVPB Q8HR [facility] Rx#:[id number] Oral 300 / 300 0 / 0 Output: Urine 0 / 0 0 / 0 Other: Meal Dinner Percent of Meal Consumed 75% # Voids 1 1 Weight 85.1 kg Patient Weight 09/10/18 23:59 Weight 85.1 kg - General physical appearance well developed, no distress - Neck trachea midline - Respiratory normal expansion, normal respiratory effort - Cardiovascular Cardiovascular exam: Present: RRR - Abdomen Abdomen general surgery: Present: bowel sounds present, soft, non tender - Rectum Rectum: Present: other (no perianal/perirectal induration, erythema; packing "came out when she wiped.") - Integumentary Integumentary general surgery: Present: warm and dry - Neurologic Present: CN 2-12 grossly intact, normal coordination, normal sensation - Musculoskeletal Present: normal gait, normal posture - Psychiatric Psychiatric general surgery: Present: A&Ox3, appropriate, oriented to person, oriented to place, oriented to time, speech is normal, memory intact - Time Spent with Patient Total time spent providing and/or coordinating discharge services: Date of admission: 09/08/18 21:32 Primary care physician: Yoly Reynoso CNP Consults: 09/08/18 20:52 Consult to Surgery [CONS] Stat Consulting Provider: [facility] Reason for Consult: Left perirectal abscess Time Notified: 20:52 Call Completed: Yes Discharging clinician: Dayna Siddiqi (Maren Floyd, LYRIC) Labs on day of discharge: Labs from last 24 hours 09/10/18 09/10/18 09/09/18 04:06 04:06 07:26 WBC 14.9 H RBC 4.75 Hgb 14.0 Hct 41.1 MCV 86.5 MCH 29.5 MCHC 34.1 RDW 14.5 Plt Count 264 MPV 10.2 Immature Gran % 0.3 Seg Neutrophils % 83.9 Lymphocytes % 9.8 Monocytes % 5.9 Eosinophils % 0.0 Basophils % 0.1 Neutrophils # 12.5 H Lymphocytes # 1.5 Monocytes # 0.9 Eosinophils # 0.0 Basophils # 0.0 Sodium 138 140 Potassium 3.5 4.0 Chloride 108 H 110 H Carbon Dioxide 23 27 BUN 7 6 Creatinine 0.58 L 0.60 Est GFR ( Amer) > 60 > 60 Est GFR (Non-Af Amer) > 60 > 60 BUN/Creatinine Ratio 12 10 Glucose 118 H 98 POC Glucose Est Mean Plasma Glucose Hemoglobin A1c Calculated Osmolality 285 288 Calcium 9.3 8.9 09/09/18 09/09/18 09/09/18 05:24 04:24 00:16 WBC RBC Hgb Hct MCV MCH MCHC RDW Plt Count MPV Immature Gran % Seg Neutrophils % Lymphocytes % Monocytes % Eosinophils % Basophils % Neutrophils # Lymphocytes # Monocytes # Eosinophils # Basophils # Sodium Potassium Chloride Carbon Dioxide BUN Creatinine Est GFR ( Amer) Est GFR (Non-Af Amer) BUN/Creatinine Ratio Glucose POC Glucose 95 93 Est Mean Plasma Glucose 123 Hemoglobin A1c 5.9 H Calculated Osmolality Calcium Preliminary micro results at discharge 09/08/18 22:25 Blood Culture - Preliminary Peripheral Venipuncture Culture is incubating and being continuously monitored for growth. Final report to follow. 09/08/18 22:20 Blood Culture - Preliminary Peripheral Venipuncture Culture is incubating and being continuously monitored for growth. Final report to follow. - Diet and Activity Activity: increase activity as tolerated Diet: advance to your usual diet
[2018-09-09] MEDS ORDERED: Cefepime HCl 1,000 MG in 0.9 % Sodium Chloride Mini Bag 100 ML IVPB SCH (18:00)
[2018-09-09] MEDS ORDERED: Verapamil ER (24 HR) 120 MG TABLET.ER PO SCH ×2 (21:00)
[2018-09-10 04:45] LABS: Basophils % 0.1 %; Hematocrit 41.1 % (35.3-44.9); Immature Granulocytes % 0.3 % (0-4); Lymphocytes # 1.5 K/mcL (0.6-4.6); Lymphocytes % 9.8 %; Mean Corpuscular HGB Conc 34.1 g/dL (31.6-35.5); Mean Corpuscular Hemoglobin 29.5 pg (28.0-33.3); Mean Corpuscular Volume 86.5 fL (83.0-100.0); Mean Platelet Volume 10.2 fL (9.4-12.4); Monocytes # 0.9 K/mcL (0.0-1.3); Monocytes % 5.9 %; Neutrophils # 12.5 K/mcL (1.6-8.9); Platelet Count 264 K/mcL (140-400); Red Blood Count 4.75 M/mcL (3.82-4.97); Red Cell Distribution Width 14.5 % (11.5-14.5); Segmented Neutrophils % 83.9 %
[2018-09-10 05:07] LABS: BUN/Creatinine Ratio 12 (6-26); Blood Urea Nitrogen 7 mg/dL (6-20); Calcium 9.3 mg/dL (8.6-10.3); Carbon Dioxide 23 mEq/L (23-29); Chloride 108 mEq/L (98-107); Glucose 118 mg/dL (70-105); Osmolality,Calculated 285 (280-300); Potassium 3.5 mEq/L (3.5-5.1); Sodium 138 mEq/L (136-145); eGFR For Non-African Americans > 60 (> 60)
[2018-09-10 06:40] VITALS: BP 94/65
[2018-09-10] MEDS ORDERED: Levofloxacin 500 MG/100 ML 500 MG/100 ML BAG IVPB SCH (09:00)
[2018-09-10] MEDS: levETIRAcetam 250 MG TABLET PO SCH (09:04)
[2018-09-10] MEDS: Nicotine 21 MG PATCH.TD24 TD SCH (09:04)
--- NOTE | 2018-09-10 09:08 | Discharge Summary ---
- NOTES TO OUTPATIENT PROVIDER Notes to Outpatient Provider: f/u with general surgery within a week. f/u with PCP within aweek. Orders not resulted at time of discharge: Pending orders 09/08/18 22:25 Culture,Blood [BC] Routine Date of Encounter: 09/10/18 Time of Encounter: 09:07 - Discharge Diagnosis (1) Perirectal abscess Priority: Primary Status: Resolved (2) Seizure disorder Priority: Secondary Status: Chronic (3) Afib Priority: Secondary Status: Chronic Qualifiers: Atrial fibrillation type: paroxysmal Qualified Code(s): I48.0 - Paroxysmal atrial fibrillation (4) DVT prophylaxis Priority: Primary Status: Acute Hospital course: Sana Moya is a 43-year-old woman with a history of seizure disorder and prior gluteal abscess who was initially evaluated and [facility] ER this evening where she went to with complaints of pain and swelling in her left gluteal cleft seen to have an abscess formation on CT. She has being prepared for transfer here however she left AMA because her father is on hospice and she needed to get things ready for him. She then comes back here at which time surgery was contacted and recommended continuing empiric antibiotics and will be seen on consult in the morning. She denies fever and chills and her only complaint is pain and drainage. CT scan was reviewed and the findings of a perirectal medial gluteal mass noted. She reports an anaphylactic allergy to penicillins. She underwent perirectal abscess I+D by general surgery on 09/09, She also received IV abx with Vancomycin, Flagyl, and Levaquin. Her wound dressing has been removed by surgery. Her labs are normal, vital signs are stable, will be discharged home today, continue to take oral abx as prescribed. f/u with PCP and Surgery within a week. Discharge discussed with: patient Time spent discussing smoking cessation with patient: more than 10 minutes - Time Spent with Patient Total time spent providing and/or coordinating discharge services: Greater than 30 minutes - Discharge Medications Prescriptions: OxyCODONE/APAP 5/325 [Percocet 5/325 MG] 1 each PO Q6HR PRN 5 Days #20 tablet PRN Reason: Pain Docusate Sodium [Colace] 100 mg PO BID PRN #30 capsule PRN Reason: Contstipation Psyllium Husk [Metamucil] 1.04 gm PO BID 30 Days #60 capsule Home Medications: Ciprofloxacin HCl [Cipro] 500 mg PO BID #20 tablet 09/08/18 [Rx] Furosemide [Lasix] 20 mg PO BID 09/08/18 [History] LevETIRAcetam [Keppra] 500 mg PO TID 09/08/18 [History] Promethazine [Phenergan] 25 mg PO Q6HR PRN #16 tablet 09/08/18 [Rx] Verapamil HCl [Verapamil ER] 120 mg PO 09/08/18 [History] Zolpidem [Ambien] 10 mg PO HS 09/08/18 [History] metroNIDAZOLE [Metronidazole] 500 mg PO TID #30 tablet 09/08/18 [Rx] Docusate Sodium [Colace] 100 mg PO BID PRN #30 capsule 09/10/18 [Rx] OxyCODONE/APAP 5/325 [Percocet 5/325 MG] 1 each PO Q6HR PRN 5 Days #20 tablet 09/10/18 [Rx] Psyllium Husk [Metamucil] 1.04 gm PO BID 30 Days #60 capsule 09/10/18 [Rx] Allergies/Adverse Reactions: Allergy/AdvReac Type Severity Reaction Status Date / Time Penicillins Allergy Intermediate Rash Verified 09/08/18 23:43 propoxyphene Allergy Rash Verified 02/27/17 17:52 [From Darvopietrot-N] Sulfa (Sulfonamide Allergy Swelling Verified 02/27/17 17:52 Antibiotics) of Lip/Tongue/Throat Date of admission: 09/08/18 21:32 Primary care physician: Yoly Reynoso CNP Consults: 09/08/18 20:52 Consult to Surgery [CONS] Stat Consulting Provider: [facility] Reason for Consult: Left perirectal abscess Time Notified: 20:52 Call Completed: Yes Anticipated date of discharge: 09/10/18 - Constitutional Vitals: Temp Pulse Resp BP Pulse Ox 98.5 F 107 14 94/65 99 09/10/18 06:37 09/10/18 06:37 09/10/18 06:37 09/10/18 06:37 09/10/18 06:37 General appearance: Present: cooperative, A&O X 3, answers questions appropriately Exam: Vitals: Reviewed General: Well-developed and well-appearing in no acute distress. Skin: Mild erythema and moderate induration in the mid left gluteal cleft with a non-draining orifice noted, tender to palpation. HEENT: Moist mucous membranes. No conjunctivae pallor. Neck: No lymphadenopathy. No JVD. No carotid bruits. No palpable thyroid. Chest: Normal thoracic expansion. Normal breath sounds. Clear to auscultation. Heart: Normal S1 & S2; rhythmic. No rubs or murmurs. Abdomen: Non-distended, soft and non-tender to palpation. No peritoneal reaction. Liver is normal in size. Spleen is not palpable. Extremities: No clubbing, cyanosis or edema. No calf tenderness. Normal distal pulses. Neurological: Awake, alert and oriented to person, place and time. No focal deficits. Psych: Affect appropriate. - Patient Status Disposition: Home, Self-Care Condition: Fair - Discharge Instructions Instructions: Anorectal Abscess and Anal Fistula (DC), Sitz Bath (DC) Follow Up With: Dayna Siddiqi MD [Partnered Physician] - 09/26/18 9:35 am Yoly Reynoso CNP [Primary Care Provider] - Additional Instructions: sitz baths 4 times a day after bm's = soak buttocks in warm soapy water in bathtub or construction project engineer shower and let warm water run over backside for 10-15 minutes each time take stool softener such as colace 100 mg po twice daily fiber supplement - metamucil capsules 2 by mouth daily drink at least 8, 8 oz water daily call office if persistent fevers of 101, pelvic pain, inability to urinate or have bowel movement, persistent rectal bleeding get your prescriptions for cipro and flagyl filled and take as prescribed
[2018-09-10] MEDS: MetroNIDAZOLE 500 MG/100 ML 500 MG/100 ML BAG IVPB SCH (09:13)
[2018-09-10] MEDS ORDERED: Aminoglycoside Consult 1 EACH MC ONE (11:01)
== END 2018-09-10 11:02 | disposition home or self-care (01) ==
LOC: EMEROOARM 20:23 → 3ANU 20:23
PROVIDERS: ADMIT Internal Medicine; ATTEND Internal Medicine